=== PATIENT | male | born 2000 | race Caucasian/White ===

== ENCOUNTER 2021-02-15 13:48 | Emergency (ER) | payer BC ==
[~2021-02-15] VITALS: Ht 172.7 cm; Wt 86.9 kg
[2021-02-15 14:05] VITALS: BP 128/67
[2021-02-15] MEDS ORDERED: LIDOCAINE-MPF 1%, 5ML ONE (14:18)
[2021-02-15] MEDS ORDERED: BUPIVACAINE 0.25% ONE (14:18)
[2021-02-15] MEDS ORDERED: CEFAZOLIN 1,000 MG ONE (14:22)
[2021-02-15] MEDS ORDERED: DIPH,PERTUSS(ACELL),TET VAC/PF 0.5 ML IM-VACC ONE ×2 (14:22→14:30)
[2021-02-15] MEDS ORDERED: LIDOCAINE-MPF 1%, 5ML INFIL ONE (14:30)
[2021-02-15] MEDS ORDERED: CEFAZOLIN 1,000 MG IM ONE (14:30)
[2021-02-15] MEDS ORDERED: BUPIVACAINE/PF 0.25% INFIL ONE (14:30)
== END 2021-02-15 17:13 | disposition home or self-care (01) ==
LOC: ED 17:05
DX: S61.411A Laceration without foreign body of right hand, initial encounter (principal); W26.8XXA Contact with other sharp object(s), not elsewhere classified, initial encounter; Y93.89 Activity, other specified; Y92.009 Unspecified place in unspecified non-institutional (private) residence as the place of occurrence of the external cause; Y99.8 Other external cause status
CPT/HCPCS: 12042; 73130; 90471; 90715; 96372; 99284; J0690